=== PATIENT | female | born 1990 | race Caucasian/White ===

== ENCOUNTER 2019-05-12 19:33 | Emergency (ER) | payer SELFPAY ==
--- NOTE | 2019-05-12 20:14 | NUR ---
PT 'S NAME WAS CALLED IN LOBBY, PT WAS NOT ABLE TO BE LOCATED.
--- NOTE | 2019-05-12 20:20 | NUR ---
UNABLE TO LOCATE PT IN THE LOBBY, 2ND CALLING
--- NOTE | 2019-05-12 20:25 | NUR ---
PT 'S NAME WAS CALLED IN LOBBY, PT WAS NOT ABLE TO BE LOCATED. 3RD AND FINAL
== END 2019-05-12 20:27 | disposition left against medical advice (07) ==
LOC: ED 20:20
DX: Z53.21 Procedure and treatment not carried out due to patient leaving prior to being seen by health care provider (principal)

== ENCOUNTER 2020-08-13 01:52 | Inpatient (IN) | payer MEDICAID ==
[~2020-08-13] VITALS: Ht 154.9 cm; Wt 47.9 kg
[2020-08-13 02:45] VITALS: BP 111/76
[2020-08-13] MEDS ORDERED: ONDANSETRON ODT 4 MG PO PRN (03:00)
[2020-08-13] MEDS ORDERED: ACETAMINOPHEN 325 MG TABLET PO PRN (03:00)
[2020-08-13] MEDS ORDERED: PLEASE ENTER ALLERGIES MC SCH (04:00)
[2020-08-13] MEDS ORDERED: PLEASE ENTER HEIGHT AND WEIGHT MC SCH (04:00)
[2020-08-13 07:38] VITALS: BP 98/67
[2020-08-13] MEDS: NICOTINE 14MG/24 HR PATCH.TD24 TD SCH (08:26)
[2020-08-13] MEDS: PALIPERIDONE 6 MG TAB.ER.24 PO SCH (08:26)
[2020-08-13] MEDS: ACAMPROSATE 333 MG TABLET.DR PO SCH ×3 (08:26→20:26)
[2020-08-13 08:33] LABS: CHOL/HDL RATIO 2.1; LDL/HDL RATIO 0.9 (0.5-3.0)
[2020-08-13 18:56] VITALS: BP 95/60
[2020-08-14 08:03] VITALS: BP 109/69
[2020-08-14] MEDS: ACAMPROSATE 333 MG TABLET.DR PO SCH ×3 (09:04→20:25)
[2020-08-14] MEDS: NICOTINE 14MG/24 HR PATCH.TD24 TD SCH (09:04)
[2020-08-14] MEDS: PALIPERIDONE 6 MG TAB.ER.24 PO SCH (09:04)
[2020-08-14 19:23] VITALS: BP 130/90
[2020-08-15 07:54] VITALS: BP 115/79
[2020-08-15] MEDS: PALIPERIDONE 6 MG TAB.ER.24 PO SCH (09:44)
[2020-08-15] MEDS: ACAMPROSATE 333 MG TABLET.DR PO SCH ×3 (09:44→20:13)
[2020-08-15] MEDS: NICOTINE 14MG/24 HR PATCH.TD24 TD SCH (09:45)
[2020-08-15] MEDS: BUPROPION SR 100 MG TABLET PO SCH (13:24)
[2020-08-15] MEDS: QUETIAPINE 25MG TABLET PO PRN ×2 (13:24→20:17)
[2020-08-15] MEDS: TRAZODONE 50MG TABLET PO PRN (20:13)
[2020-08-15 20:19] VITALS: BP 124/82
[2020-08-16 07:50] VITALS: BP 98/62
[2020-08-16] MEDS: NICOTINE 14MG/24 HR PATCH.TD24 TD SCH (08:45)
[2020-08-16] MEDS: ACAMPROSATE 333 MG TABLET.DR PO SCH ×3 (08:46→20:24)
[2020-08-16] MEDS: PALIPERIDONE 6 MG TAB.ER.24 PO SCH (08:46)
[2020-08-16] MEDS: BUPROPION SR 100 MG TABLET PO SCH ×2 (08:46→13:22)
[2020-08-16] MEDS: QUETIAPINE 25MG TABLET PO PRN ×2 (09:31→15:48)
[2020-08-16 19:04] VITALS: BP 105/68
[2020-08-16] MEDS: TRAZODONE 50MG TABLET PO PRN (20:24)
[2020-08-17 07:35] VITALS: BP 102/67
[2020-08-17] MEDS: NICOTINE 14MG/24 HR PATCH.TD24 TD SCH (08:55)
[2020-08-17] MEDS: BUPROPION SR 100 MG TABLET PO SCH ×2 (08:55→13:07)
[2020-08-17] MEDS: ACAMPROSATE 333 MG TABLET.DR PO SCH ×3 (08:55→20:59)
[2020-08-17] MEDS: PALIPERIDONE 6 MG TAB.ER.24 PO SCH (08:55)
[2020-08-17] MEDS: QUETIAPINE 25MG TABLET PO PRN ×2 (11:17→20:59)
[2020-08-17 19:46] VITALS: BP 120/72
[2020-08-17] MEDS: TRAZODONE 50MG TABLET PO PRN (20:59)
[2020-08-18 07:53] VITALS: BP 100/66
[2020-08-18] MEDS ORDERED: NICO-486 TD (08:07)
[2020-08-18] MEDS ORDERED: TRAZ50TA66 PO (08:07)
[2020-08-18] MEDS ORDERED: BUPR-173 PO (08:07)
[2020-08-18] MEDS ORDERED: PALI6TAB5 PO (08:07)
[2020-08-18] MEDS: ACAMPROSATE 333 MG TABLET.DR PO SCH (09:05)
[2020-08-18] MEDS: PALIPERIDONE 6 MG TAB.ER.24 PO SCH (09:05)
[2020-08-18] MEDS: QUETIAPINE 25MG TABLET PO PRN (09:05)
[2020-08-18] MEDS: BUPROPION SR 100 MG TABLET PO SCH ×2 (09:05→11:46)
[2020-08-18] MEDS: NICOTINE 14MG/24 HR PATCH.TD24 TD SCH (09:06)
== END 2020-08-18 12:10 | disposition home or self-care (01) | DRG 885 ==
LOC: 3E 02:45
PROVIDERS: ADMIT Psychiatry & Neurology Psychosomatic Medicine; ATTEND Psychiatry & Neurology Psychosomatic Medicine
DX: F25.9 Schizoaffective disorder, unspecified (principal); E87.2 Acidosis; R45.851 Suicidal ideations; F17.210 Nicotine dependence, cigarettes, uncomplicated; E87.6 Hypokalemia; D72.829 Elevated white blood cell count, unspecified; F15.229 Other stimulant dependence with intoxication, unspecified; F41.9 Anxiety disorder, unspecified; F10.10 Alcohol abuse, uncomplicated; F90.9 Attention-deficit hyperactivity disorder, unspecified type; F60.3 Borderline personality disorder; Z81.1 Family history of alcohol abuse and dependence; Z81.8 Family history of other mental and behavioral disorders; Z79.899 Other long term (current) drug therapy; Z56.0 Unemployment, unspecified
CPT/HCPCS: 36415; 71045; 80061; 82607; 93005

== ENCOUNTER 2020-09-14 14:37 | Inpatient (IN) | payer MEDICAID ==
[~2020-09-14] VITALS: Ht 154.9 cm; Wt 53.0 kg
[~2020-09-14 14:37] MED LIST: BUPR-173 PO; NICO-486 TD; PALI6TAB5 PO; TRAZ50TA66 PO
[2020-09-14] MEDS ORDERED: POLYETHYLENE GLYCOL 17 GM PACKET PO PRN (15:30)
[2020-09-14] MEDS ORDERED: HALOPERIDOL 5 MG TABLET PO PRN (15:30)
[2020-09-14] MEDS ORDERED: BISACODYL 10 MG SUPP PR PRN (15:30)
[2020-09-14] MEDS ORDERED: DOCUSATE 100 MG CAPSULE PO PRN (15:30)
[2020-09-14] MEDS ORDERED: ONDANSETRON ODT 4 MG PO PRN (15:30)
[2020-09-14 17:45] VITALS: BP 108/72
[2020-09-14 19:48] VITALS: BP 130/75
[2020-09-14] MEDS: ACAMPROSATE 333 MG TABLET.DR PO SCH (20:13)
[2020-09-14] MEDS: LORazepam 1MG TABLET PO PRN (20:13)
[2020-09-15 06:10] LABS: FREE T4 (FREE THYROXINE) 0.81 ng/dL (0.76-1.46)
[2020-09-15 07:32] VITALS: BP 97/65
[2020-09-15] MEDS: ACAMPROSATE 333 MG TABLET.DR PO SCH ×3 (09:06→20:14)
[2020-09-15] MEDS: NICOTINE 7 MG/24 HR PATCH.TD24 TD SCH (09:06)
[2020-09-15] MEDS: LORazepam 1MG TABLET PO PRN ×2 (09:14→20:14)
[2020-09-15] MEDS: ACETAMINOPHEN 325 MG TABLET PO PRN (09:14)
[2020-09-15 11:38] LABS: MICROSCOPIC NOT IND
[2020-09-15 19:23] VITALS: BP 105/69
[2020-09-15] MEDS: DIVALPROEX 500 MG TABLET.DR PO SCH (20:13)
[2020-09-16 07:39] VITALS: BP 98/66
[2020-09-16] MEDS: ACAMPROSATE 333 MG TABLET.DR PO SCH ×3 (08:19→20:26)
[2020-09-16] MEDS: DIVALPROEX 500 MG TABLET.DR PO SCH ×2 (08:19→20:26)
[2020-09-16] MEDS: NICOTINE 7 MG/24 HR PATCH.TD24 TD SCH (08:20)
[2020-09-16] MEDS: LORazepam 1MG TABLET PO PRN ×2 (09:36→19:45)
[2020-09-16] MEDS: CARIPRAZINE 1.5 MG CAP PO SCH (17:09)
[2020-09-16 19:12] VITALS: BP 113/70
[2020-09-17 07:21] VITALS: BP 100/67
[2020-09-17] MEDS: DIVALPROEX 500 MG TABLET.DR PO SCH ×2 (09:01→16:30)
[2020-09-17] MEDS: ACAMPROSATE 333 MG TABLET.DR PO SCH ×3 (09:01→20:43)
[2020-09-17] MEDS: NICOTINE 7 MG/24 HR PATCH.TD24 TD SCH (09:02)
[2020-09-17] MEDS: LORazepam 1MG TABLET PO PRN ×2 (10:38→16:30)
[2020-09-17] MEDS: ACETAMINOPHEN 325 MG TABLET PO PRN (11:53)
[2020-09-17] MEDS: CARIPRAZINE 1.5 MG CAP PO SCH (17:05)
[2020-09-17 19:17] VITALS: BP 110/70
[2020-09-18 07:30] VITALS: BP 104/70
[2020-09-18] MEDS: NICOTINE 7 MG/24 HR PATCH.TD24 TD SCH (09:13)
[2020-09-18] MEDS: ACAMPROSATE 333 MG TABLET.DR PO SCH ×3 (09:13→20:11)
[2020-09-18] MEDS: LORazepam 1MG TABLET PO PRN (09:21)
[2020-09-18] MEDS: DIVALPROEX 500 MG TABLET.DR PO SCH (16:27)
[2020-09-18 19:13] VITALS: BP 115/70
[2020-09-18] MEDS ORDERED: CARIPRAZINE 1.5 MG CAP PO SCH (21:00)
[2020-09-19 07:45] VITALS: BP 110/72
[2020-09-19] MEDS: NICOTINE 7 MG/24 HR PATCH.TD24 TD SCH (08:13)
[2020-09-19] MEDS: ACAMPROSATE 333 MG TABLET.DR PO SCH (08:13)
[2020-09-19] MEDS ORDERED: NICO-485 TD (11:59)
[2020-09-19] MEDS ORDERED: DIVA-61 PO (11:59)
[2020-09-19] MEDS ORDERED: ACAM333T7 PO (11:59)
[2020-09-19] MEDS ORDERED: CARI1.5C2 PO (11:59)
== END 2020-09-19 13:06 | disposition home or self-care (01) | DRG 885 ==
LOC: 3E 16:42
PROVIDERS: ADMIT Psychiatry & Neurology Psychosomatic Medicine; ATTEND Psychiatry & Neurology Psychosomatic Medicine
DX: F25.0 Schizoaffective disorder, bipolar type (principal); F11.20 Opioid dependence, uncomplicated; F15.20 Other stimulant dependence, uncomplicated; R45.851 Suicidal ideations; Z79.899 Other long term (current) drug therapy; A53.9 Syphilis, unspecified; F10.21 Alcohol dependence, in remission; F17.210 Nicotine dependence, cigarettes, uncomplicated; Z71.6 Tobacco abuse counseling
CPT/HCPCS: 36415; 81003; 82140; 84439; 84443; 84702; 93005; Q0162